=== PATIENT | male | born 1970 | race Caucasian/White ===

== ENCOUNTER → 2017-06-12 | Outpatient (CLI) | payer OTHER ==
[~2017-06-12] MED LIST: FLEXERIL 1010 MG/TAB PO; MOTRIN 800800 MG/TAB PO; NORCO 325 MG-51 TAB PO
== END ==
LOC: COL.PUL 12:52
DX: R06.02 Shortness of breath (principal)

== ENCOUNTER → 2017-08-08 | Outpatient (CLI) | payer OTHER | LOC: COL.PUL 09:51 | DX: R06.02 Shortness of breath (principal) | CPT/HCPCS: J7674 ==